=== PATIENT | male | born 1955 | race Caucasian/White ===

== ENCOUNTER 2020-01-04 00:26 | Day surgery (SDC) | payer OTHER, SELFPAY ==
[2020-01-03 12:54] VITALS: BMI 38.9
--- NOTE | 2020-01-04 08:23 | WPDANESEPPF ---
Anes - Initial Pre Proc Eval Procedure: Operation Date: 01/04/20 09:00 Proposed Procedures p Screening Colonoscopy - Micah Marinelli MD Date/Time: 01/04/20 08:23 Surgeon: Micah Marinelli MD Pre Op Diagnosis: Neoplasm Screening Patient Data Age: 64 Gender: M Height: 1.7 m Weight: 113 kg Allergies Allergy/AdvReac Type Severity Reaction Status Date / Time No Known Allergies Allergy Verified 01/03/20 12:53 Home Medications Medication Instructions Recorded Confirmed Type naproxen 500 mg tablet 500 mg PO BID #180 tablet 09/04/19 01/03/20 Rx aspirin 81 mg tablet,delayed 81 mg PO DAILY 12/04/19 01/03/20 History release atenolol 50 mg tablet 50 mg PO BID tablet 12/04/19 01/03/20 History lisinopril 20 1 tablet PO BID tablet 12/04/19 01/03/20 History mg-hydrochlorothiazide 12.5 mg tablet tramadol 50 mg tablet 50 mg PO TID PRN #60 tablet 12/21/19 01/03/20 Rx Patient hx anesthesia problems: none Family hx anesthesia problems: none [facility] Past Medical History Medical History (Updated 01/03/20 @ 14:15 by Pete Benavides DO) Hereditary essential tremor Hypertension Unspecified sleep apnea Surgical History Surgical History (Updated 01/03/20 @ 14:15 by Pete Benavides DO) History of total hip replacement History of total knee replacement Social History Social History Smoking status: Never smoker Alcohol intake: never Anes - Eval Final PreProcedure Day of Procedure 01/04/20 08:23 Patient weight: obese Heart: regular rate and rhythm Lungs: clear to auscultation and normal air movement Airway: Mallampati scale class III Neurological: alert and oriented Last oral intake: >/= 8 hours ASA classification: III Emergent: no Anesthetic plan: proceed Anesthesia type and monitoring: general GIVS and standard monitoring Informed Consent: The patient's anesthetic plan and its attendant risks and benefits were discussed with the patient/family/POA. Questions were solicited and answers provided to the satisfaction of the patient/family/POA.
[2020-01-04] MEDS: LACTATED RINGERS 1,000 ML 150 ML IV CONT (08:24)
[2020-01-04 08:31] VITALS: BP 151/103; PULSE 52; RESP 16; TEMP 36.4; O2SAT 100; BMI 41.1
--- NOTE | 2020-01-04 09:03 | WPDGICN ---
Assessment and Plan Additional Plan This is a 64-year-old white male patient seen in evaluation at the request of Dr. Abel Martinez. Patient presents for neoplasia screening. His current weight appetite bowel movements are normal. He denies abdominal pain. Denies any blood in his stools. He reports his bowel habits are regular and normal. Patient reports last colonoscopy 10 years ago was unremarkable. Five years ago he had partial colon resection for diverticulitis. Family history is significant both brother and father have had colon polyps. Past medical history is significant for hypertension. He has had previous hip and knee surgery in 2016. Current medications include a tunnel all, lisinopril, Naprosyn, tramadol, and aspirin. He has no known drug allergies. Physical exam reveals him to be alert. Vital signs stable. HEENT exam unremarkable. Lungs are clear to auscultation and percussion. Heart is without murmur or extra sounds. Abdominal exam bowel sounds are present soft nontender with no hepatosplenomegaly. Digital external rectal exam is normal. Impression 1. Family history of colon polyps. 2. History of partial colectomy because of diverticulitis. Plan is for screening colonoscopy. Consider this in 5 years because of family history. GI Consult Note Consult date/time: 01/04/20 09:03 HPI: Kash Gallegos is a 64 year old male [facility] Past Medical History Medical History (Updated 01/03/20 @ 14:15 by Pete Benavides DO) Hereditary essential tremor Hypertension Unspecified sleep apnea Surgical History Surgical History (Updated 01/03/20 @ 14:15 by Pete Benavides DO) History of total hip replacement History of total knee replacement Social History Social History Smoking status: Never smoker Alcohol intake: never Meds Home Medications and Allergies Home Medications Medication Instructions Recorded Confirmed Type naproxen 500 mg tablet 500 mg PO BID #180 tablet 09/04/19 01/03/20 Rx aspirin 81 mg tablet,delayed 81 mg PO DAILY 12/04/19 01/03/20 History release atenolol 50 mg tablet 50 mg PO BID tablet 12/04/19 01/03/20 History lisinopril 20 1 tablet PO BID tablet 12/04/19 01/03/20 History mg-hydrochlorothiazide 12.5 mg tablet tramadol 50 mg tablet 50 mg PO TID PRN #60 tablet 12/21/19 01/03/20 Rx Allergies Allergy/AdvReac Type Severity Reaction Status Date / Time No Known Allergies Allergy Verified 01/04/20 08:30 Vital Signs Vital Signs - 24 hr 01/04/20 08:31 Temperature 36.4 C L Pulse Rate 52 L Respiratory Rate 16 Blood Pressure 151/103 H Pulse Oximetry 100
[2020-01-04 09:27] VITALS: BP 110/63; PULSE 46; RESP 16; O2SAT 95
[2020-01-04 09:37] VITALS: BP 127/85; PULSE 51; RESP 16; O2SAT 95
[2020-01-04 09:47] VITALS: BP 112/56; PULSE 58; RESP 16; O2SAT 97
== END 2020-01-04 10:00 | disposition home or self-care (01) ==
PROVIDERS: PCP Family Medicine; Visit Provider Internal Medicine Gastroenterology
PROC: 0DJD8ZZ Inspection of Lower Intestinal Tract, Via Natural or Artificial Opening Endoscopic (ICD-10-PCS; CPT 45378; principal; 2020-01-04 09:00)
DX: Z12.11 Encounter for screening for malignant neoplasm of colon (principal); K57.30 Diverticulosis of large intestine without perforation or abscess without bleeding; K64.8 Other hemorrhoids; Z98.0 Intestinal bypass and anastomosis status; Z90.49 Acquired absence of other specified parts of digestive tract; Z87.19 Personal history of other diseases of the digestive system; Z83.71 Family history of colonic polyps; I10 Essential (primary) hypertension; G25.0 Essential tremor; G47.30 Sleep apnea, unspecified; Z79.82 Long term (current) use of aspirin; E66.01 Morbid (severe) obesity due to excess calories; Z68.41 Body mass index [BMI] 40.0-44.9, adult
CPT/HCPCS: 45378; J2704; J7120

== ENCOUNTER 2020-06-20 10:54 | Outpatient (CLI) | payer OTHER, SELFPAY ==
[2020-06-20 12:28] LABS: Alanine Aminotransferase 35 U/L (16-63); Albumin Level 4.1 g/dL (3.4-5.0); Alkaline Phosphatase 78 U/L (46-116); Anion Gap 5 mmol/L (8-16); Aspartate Amino Transferase 31 U/L (15-37); Blood Urea Nitrogen 16 mg/dL (7-18); Calcium 8.9 mg/dL (8.5-10.1); Carbon Dioxide 35 mmol/L (21-32); Chloride 98 mmol/L (98-108); Cholesterol 186 mg/dL (0-200); Estimated Glomerular Filt Rate > 60; Glucose 90 mg/dL (70-99); HDL Direct 42 mg/dL (40-60); LDL Cholesterol Calculated 117 mg/dL (<130); Osmolality Calculated 287 mOsm/kg (285-295); Sodium 138 mmol/L (136-145); Total Protein 6.9 g/dL (6.4-8.2); Triglycerides 136 mg/dL (0-150)
== END 2020-06-20 10:55 | disposition home or self-care (01) ==
LOC: CHSLAB 10:55
PROVIDERS: PCP Family Medicine; Visit Provider Family Medicine
DX: E11.9 Type 2 diabetes mellitus without complications (principal)
CPT/HCPCS: 36415; 80053; 80061

== ENCOUNTER 2020-08-21 12:59 | Outpatient (RCR) | payer OTHER, SELFPAY ==
--- NOTE | 2020-08-21 13:46 | PTOPEVAL ---
Thank you for referring Kash Gallegos to [facility].? The patient is scheduled to be seen for therapy? ____x/week for ___ weeks. Please review, sign, date and return this plan of care ANTONIA. I agree with and certify that the following plan of care is medically necessary. Referring Physician Date Admitting Provider: Attending Provider: PHYSICIAN NOT ON STAFF Referring Provider: *PT Outpatient Evaluation Start: 08/21/20 12:59 Freq: Status: Active Protocol: Document 08/21/20 13:00 GERMANIA (Rec: 08/21/20 13:46 GERMANIA [id number]) Therapy Assessment Status Assessment Status Assessment Status Evaluation Outpatient Past Medical History Neurological History Hx Neurological Disorders No Significant History Cardiovascular History Hx Hypertension Yes Respiratory History Hx Sleep Apnea Yes: CPAP Gastrointestinal History Hx Bowel Surgery Yes: colon resection Hx Diverticulitis Yes Hx Hernia Yes: Umbilical Hernia repair Genitourinary History Hx Genitourinary Disorders No Significant History Musculoskeletal History Hx Joint Replacement Yes: Right TKA 2015, Right SARAH 2016 Hematological History Hx Hematological Disorders No Significant History Endocrine History Hx Endocrine Disorders No Significant History HEENT History Hx HEENT Disorders No Significant History Integumentary History Hx Skin Disorders No Significant History Reproductive History Hx Reproductive Disorders No Significant History Psychosocial History Hx Psychiatric Disorders No Significant History Pain History History of Any Previous or Ongoing No Significant History Instance of Pain Anesthesia History Hx Anesthesia Reactions No Significant History Evaluation Information Problem Diagnosis s/p L TKA Onset 07/30/20 Additional Evaluation Detail LEFS = Subjective Information patient reports he had a TKA Query Text:As Reported By Patient/ of the L knee on 07/30/20. he Family reports prior to surgery he was experiencing a lot of pain . he reports his knee was very arthritic. he reports since surgery, he had some home health PT. he reports he is now coming to outpatient therapy to continue to get stronger, improve his mobility , and improved his function. he reports he wants to improve his walking speed. Prior Level of Function Comments
--- NOTE | 2020-09-12 16:42 | PTOPEVAL ---
Thank you for referring Kash Gallegos to [facility].? The patient is scheduled to be seen for therapy? ____x/week for ___ weeks. Please review, sign, date and return this plan of care ANTONIA. I agree with and certify that the following plan of care is medically necessary. Referring Physician Date Admitting Provider: Attending Provider: PHYSICIAN NOT ON STAFF Referring Provider: *PT Outpatient Evaluation Start: 08/21/20 12:59 Freq: Status: Active Protocol: Document 09/12/20 13:00 Cheng (Rec: 09/12/20 16:42 [facility] [email or web address]) Therapy Assessment Status Assessment Status Assessment Status Re-evaluation Outpatient Past Medical History Neurological History Hx Neurological Disorders No Significant History Cardiovascular History Hx Hypertension Yes Respiratory History Hx Sleep Apnea Yes: CPAP Gastrointestinal History Hx Bowel Surgery Yes: colon resection Hx Diverticulitis Yes Hx Hernia Yes: Umbilical Hernia repair Genitourinary History Hx Genitourinary Disorders No Significant History Musculoskeletal History Hx Joint Replacement Yes: Right TKA 2015, Right SARAH 2015 Hematological History Hx Hematological Disorders No Significant History Endocrine History Hx Endocrine Disorders No Significant History HEENT History Hx HEENT Disorders No Significant History Integumentary History Hx Skin Disorders No Significant History Reproductive History Hx Reproductive Disorders No Significant History Psychosocial History Hx Psychiatric Disorders No Significant History Pain History History of Any Previous or Ongoing No Significant History Instance of Pain Anesthesia History Hx Anesthesia Reactions No Significant History Evaluation Information Problem Diagnosis s/p L TKA Subjective Information patient reports he is feeling Query Text:As Reported By Patient/ good this date. he reports Family some tightness still in his L knee, but overall he is doing well. he reports he is compliant with his HEP at home . Pain Assessment Timing of Pain Assessment Timing of Pain Assessment Assessment Pain Scale Pain Scale Used Numeric (1 - 10) Self Report Pain Assessment Left Knee(s) Reported Pain Level 1 Pain Score Pain Score 1: Self Report Interventions Used Interventions Used By Clinicians Activity or ADL's,Compression Pump,Education,Exercise,Ice Lower Extremity Range of Motion Knee Range of Motion Left Knee Flexion Range of Motion - Active 100 Knee Flexion Range of Mot
== END 2020-10-10 18:00 | disposition home or self-care (01) ==
LOC: CHSPT 12:59
PROVIDERS: PCP Family Medicine
DX: Z96.652 Presence of left artificial knee joint (principal); M62.81 Muscle weakness (generalized)
CPT/HCPCS: 97016; 97110; 97161; 97530

== ENCOUNTER 2020-08-27 11:07 | Outpatient (CLI) | payer OTHER, SELFPAY ==
[2020-08-27 12:31] LABS: Anion Gap 9 mmol/L (8-16); Blood Urea Nitrogen 13 mg/dL (7-18); Carbon Dioxide 31 mmol/L (21-32); Chloride 101 mmol/L (98-108); Estimated Glomerular Filt Rate > 60; Glucose 94 mg/dL (70-99); Osmolality Calculated 292 mOsm/kg (285-295); Sodium 141 mmol/L (136-145)
== END 2020-08-27 11:08 | disposition home or self-care (01) ==
PROVIDERS: PCP Family Medicine; Visit Provider Family Medicine
DX: E87.1 Hypo-osmolality and hyponatremia (principal)
CPT/HCPCS: 36415; 80048

== ENCOUNTER 2024-11-08 16:17 | Outpatient (CLI) | payer OTHER, SELFPAY ==
--- NOTE | ~2024-11-08 | XR_ITS ---
[id number] 11/08/2024 16:41 Indication: Right knee pain Procedure: 2 views right knee Comparison: No prior studies for comparison. Findings: There is a right total knee arthroplasty, well seated. No evidence for loosening. No underl demetri fracture or traumatic malalignment. No significant joint effusion. No foreign bodies. Impression: 1: No acute bone or joint abnormality. Reviewed, dictated and finalized at location A. 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
== END 2024-11-08 16:18 | disposition home or self-care (01) ==
LOC: GOSHIMG 16:17
PROVIDERS: PCP Family Medicine; Visit Provider Family Medicine
DX: M25.561 Pain in right knee (principal)
CPT/HCPCS: 73560

== ENCOUNTER 2025-05-15 15:52 | Outpatient (CLI) | payer OTHER, SELFPAY ==
--- NOTE | ~2025-05-15 | XR_ITS ---
XR cervical spine 4-5V 05/15/2025 16:11 Indication: Neck pain Procedure: 5 views cervical spine including flexion/extension views Comparison: No prior studies for comparison. Findings: There is disc narrowing at C5-6 and C6-7. Vertebral body heights are maintained. No prevert ebral soft tissue swelling. Odontoid process is normal. Lateral masses normally aligned. No preverteb ral soft tissue swelling. No alteration of alignment with flexion/extension. There is multilevel unci shani and facet hypertrophy. Impression: 1: Moderate cervical spondylosis. Reviewed, dictated and finalized at location A. Impression: 1: Moderate cervical spondylosis.
--- NOTE | ~2025-05-15 | XR_ITS ---
EXAM/ PROCEDURE: XR clavicle RT, XR shoulder RT min 2V - 05/15/2025 15:55 CDT HISTORY: 69 years old Male with M25.519 - Pain in unspecified shoulder COMPARISON: None available FINDINGS/ IMPRESSION: There are no fractures or dislocations.Joint space narrowing, subchondral sclerosis, subchondral cyst formation and osteophyte formation, compatible with moderate osteoarthritis. Reviewed, dictated and finalized at location A.
== END 2025-05-15 15:53 | disposition home or self-care (01) ==
LOC: GOSHIMG 15:52
PROVIDERS: PCP Family Medicine; Visit Provider Family Medicine
DX: M25.511 Pain in right shoulder (principal); M47.22 Other spondylosis with radiculopathy, cervical region
CPT/HCPCS: 72050; 73000; 73030

== ENCOUNTER 2025-08-20 02:04 | Day surgery (SDC) | payer OTHER, SELFPAY ==
[2025-08-09 13:03] VITALS: BMI 40.4
--- OUTSIDE RECORDS SUMMARY | 2025-08-20 02:07 | XMS_ITS | Clinical Summary ---
Author Organization [facility] Address [address] [place] [address] Phone Care Team Providers Care Lottery Office Manager Name Role Phone Abel Martinez MD Primary Care Provider [phone] Allergies No known active allergies Medications multivitamin,tx -iron-ca-min (THERA-M) 27-0.4 mg Tablet Take 1 Tablet by mouth daily. 40 Tablet 1 6 Active traMADoL (ULTRAM) 50 mg tabletIndicatio ns:Status post total knee replacement using cement, left Take 2 Tablets (100 mg) by mouth every 6 hours as needed for MILD pain 40 Tablet 1 08/03/2020 2:51 PM CDT 0 Active lisinopriL (PRINIVIL) 40 mg tablet Take 0.5 Tablets (20 mg) by mouth 2 times daily. 30 Tablet 08/03/2020 2:51 PM CDT 0 Active Additional Information Patient taking differently: 40 mgOralDAILY, Reported on 05/22/2025 naproxen (NAPROSYN) 500 mg tablet 2 Active potassium chloride (KLOR-CON) 10 mEq Extended Release tablet Take 1 Tablet by mouth daily. 4 Active aspirin (ECOTRIN EC) 81 mg Tablet, Delayed Release (E.C.) Take 1 Tablet (81 mg) by mouth daily. 90 Tablet 3 4 Active hydroCHLOROthia zide 25 mg tablet TAKE 1 TABLET BY MOUTH EVERY DAY 90 Tablet 3 4 Active furosemide (LASIX) 40 mg tablet TAKE 1 TABLET BY MOUTH EVERY DAY 90 Tablet 3 5 Active rosuvastatin (CRESTOR) 10 mg tablet TAKE 1 TABLET (10 MG) BY MOUTH DAILY. 90 Tablet 1 5 Active atenoloL (TENORMIN) 25 mg tablet Take 1 Tablet (25 mg) by mouth daily. 90 Tablet 1 5 Active tirzepatide, weight loss, (Zepbound) 2.5 mg/0.5 mL Pen Injector Inject 2.5 mg by subcutaneous injection every 7 days. Active amoxicillin (AMOXIL) 500 mg capsule dental 5 Active amLODIPine (NORVASC) 10 mg tablet TAKE 1 TABLET (10 MG) BY MOUTH DAILY. 90 Tablet 5 Active Active Problems Patient Care Coordination No te Formatting of this note migh t be different from the original. 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 Replacer Terrence Mendiola [facility] Heart and Vascular @ Problem Noted Date Diagnosed Date Mixed hyperlipidemia 03/07/2024 Chronic diastolic dysfunction 03/05/2022 NSVT (nonsustained ventricular tachycardia) 06/2020 Quadriceps weakness 10/20/2019 Status post total hip replacement, right 017 Primary osteoarthritis of right hip 06/08/2016 Status post total knee replacement using cement, left 05/11/2016 Essential hypertension 04/15/2016 JOSE FRANCISCO (obstructive sleep apnea) 04/15/2016 Morbid obesity with BMI of 40.0-44.9, adult 01/2016 Primary osteoarthritis of left knee 01/27/2016 Primary osteoarthritis of right knee 01/27/2016 Carpal tunnel syndrome 02/14/2015 Hypokalemia Acute blood loss anemia Supraventricular tachycardia Encounters Date Type Department Care Team Description 08/15/2025 External Device Data STL ABSTRACTION Provider, Abstract 08/14/2025 External Device Data STL ABSTRACTION Provider, Abstract 08/07/2025 External Device Data STL ABSTRACTION Provider, Abstract 07/31/2025 External Device Data STL ABSTRACTION Provider, Abstract 07/10/2025 External Device Data STL ABSTRACTION Provider, Abstract 06/26/2025 External Device Data STL ABSTRACTION Provider, Abstract 06/26/2025 External Device Data STL ABSTRACTION Provider, Abstract 06/20/2025 External Device Data STL ABSTRACTION Provider, Abstract 06/12/2025 External Device Data STL ABSTRACTION Provider, Abstract 05/31/2025 Refill [facility] EP AT [address] [place] [address] Theresa Larson PA 05/30/2025 External Device Data STL ABSTRACTION Provider, Abstract 05/22/2025 8:45 AM CDT Office Visit [facility] Heart and Vascular At [address] [place] [address] Terrence Mendiola MD Chronic diastolic dysfunction (Primary Dx); Supraventricular tachycardia; Essential hypertension; NSVT (nonsustained ventricular tachycardia) (CMS/[facility]); Morbid obesity with BMI of 40.0-44.9, adult (CMS/HCC); Mixed hyperlipidemia from Last 3 Months Immunizations Immunization Administration Dates Next Due Influenza Seasonal Unspecified Formulation IM ,08/03/2016 Family History Medical History Relation Name Comments Leukemia Father Healthy Mother Relation Name Status Comments Father Mother Alive Social History Tobacco Use Types Packs/Day Years Used Date Smoking Tobacco: Never Smokeless Tobacco: Never Tobacco Cessation:Counseling Given: Not Answered Alcohol Use Standard Drinks/Week Comments Yes 1 (1 standard drink = 0.6 oz pur e alcohol) week Sex and Gender Information Value Date Recorded Sex Assigned at Not on file Legal Sex Male 1:03 PM CDT Gender Identity Not on file Sexual Orientation Not on file Last Filed Vital Signs Vital Sign Reading Time Taken Comments Blood Pressure 142/70 05/22/2025 8:40 AM CDT Pulse 56 05/22/2025 8:40 AM CDT Temperature 36.5 C (97.7 F) 08/26/2020 2:54 PM 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 Respiratory Rate 18 08/18/2021 10:34 AM CDT Oxygen Saturation 99% 05/22/2025 8:40 AM CDT Inhaled Oxygen Concentration - - Weight 124.3 kg (274 lb) 05/22/2025 8:40 AM CDT Height 170.2 cm (5' 7) 05/22/2025 8:40 AM CDT Body Mass Index 42.91 05/22/2025 8:40 AM CDT Plan of Treatment Upcoming Encounters Date Type Department Care Team (Late st Contact Info) Description 11/22/2025 2:30 PM 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 Office Visit [facility] Heart and Vascular At [facility] [address] [place] [address] Terrence Mendiola MD [address] [place] [address] 03/21/2026 2:30 PM CDT Office Visit [facility] Pulmonology [facility] [address] [place] [address] Rose Marie Albright, SAUL [address] [place] [address] Health Maintenance Due Date Last Done Comments Pre-Diabetes and Diabetes Screening 1955 DTAP/TDAP/TD VACCINES (1 - Tdap) 1974 PNEUMOCOCCAL VACCINE 50+ YEA RS (1 of 2 - PCV) 1974 COLORECTAL SCREENING 2000 Colorectal Cancer Screening 2000 FIT-DNA Q 3 years 2000 FIT/FOBT Q 1 year 2000 Flex Sig/CT Colonography Q 5 years 2000 RSV VACCINE (60+ or ) (1 - Risk 50-74 years 1-dose series) 2005 ZOSTER VACCINE (1 of 2) 2005 INFLUENZA VACCINE (#1) 2025 3, 05/25/2020, 10/30/2019, Additional history exists Medical Devices Implanted Type Area Highway Maintenance Worker Device Identifier Shelf Expiration Date Model / Serial / Lot Cement [place] Hv 40g [id number] - [id number] Implanted:Qty : 1 on 04/14/2016 by Jae Navarro MD at [facility] Cement Right: Knee [employer] 05/24/2017 [id number] / / [id number] Cement [place] Hv 40g [id number] - [id number] Implanted:Qty : 1 on 04/14/2016 by Jae Navarro MD at [facility] Cement Right: Knee [employer] [id number] 08/24/2017 [id number] / / [id number] Bone Cement Implanted:Qty : 2 on 07/30/2020 by Jae Navarro MD at [facility] Cement Left: Knee [employer] [id number] 10/24/2024 [id number] / / [id number] Liner Arcomxl Hi Wall Szf 36mm [id number] - [id number] Implanted:Qty : 1 on 10/13/2016 by Jae Navarro MD at [facility] Hip Right: Acetabulum [employer] [id number] 08/18/2021 [id number] / / [id number] Stem Fem Tprlc R/D Sz11 [id number] - [id number] Implanted:Qty : 1 on 10/13/2016 by Jae Navarro MD at [facility] Hip Right: Trochanter [employer] 07/15/2026 [id number] / / [id number] Head Fem Mod Cer Biolox 36mm 121 - [id number] Implanted:Qty : 1 on 10/13/2016 by Jae Navarro MD at [facility] Hip Right: Hip [employer] [id number] 03/05/2026 [id number] / / [id number] Hip H-3a Biom Total Implanted:Qty : 1 on 10/13/2016 by Jae Navarro MD at [facility] Hip Right: Acetabulum [employer] H-3A BIOM / / Description:REQUISITION,6758 428. Comp Tib Cocr Finned 79mm [id number] - [id number] Implanted:Qty : 1 on 04/14/2016 by Jae Navarro MD at [facility] Knee Right: Knee [employer] [id number] 10/11/2025 [id number] / / [id number] Patella 3peg Series A [id number] - [id number] Implanted:Qty : 1 on 04/14/2016 by Jae Navarro MD at [facility] Knee Right: Knee [employer] [id number] 01/09/2020 [id number] / / [id number] Description:All Biomet recon knee components are processed on requisition,2573633. Comp Fem Vngrd Cr Intrlk Rt 72.5mm [id number] - [id number] Implanted:Qty : 1 on 04/14/2016 by Jae Navarro MD at [facility] Knee Right: Knee [employer] [id number] 10/23/2025 [id number] / / [id number] Brg Tib Vngrd Ant Stblzd 925400 - [id number] Implanted:Qty : 1 on 04/14/2016 by Jae Navarro MD at [facility] Knee Right: Knee [employer] [id number] 02/17/2021 [id number] / / [id number] Comp Fem Vanguard Cr Interlock Lt 72.5mm [id number] - [id number] Implanted:Qty : 1 on 07/30/2020 by Jae Navarro MD at [facility] Knee Left: Knee [employer] [id number] 05/29/2030 [id number] / / [id number] Bearing Tib Vanguard Ant Stblzd [id number] - [id number] Implanted:Qty : 1 on 07/30/2020 by Jae Navarro MD at [facility] Knee Left: Knee [employer] [id number] 05/26/2024 [id number] / / [id number] Comp Tib Cocr Finned 79mm [id number] - [id number] Implanted:Qty : 1 on 07/30/2020 by Jae Navarro MD at [facility] Knee Left: Knee [employer] 05/28/2030 [id number] / / [id number] Patella 3peg Series A [id number] - [id number] Implanted:Qty : 1 on 07/30/2020 by Jae Navarro MD at [facility] Knee Left: Patella [employer] 05/16/2025 [id number] / / [id number] G7 Finned Acetabular Shell Implanted:Qty : 1 on 10/13/2016 by Jae Navarro MD at [facility] Other Right: Acetabulum [employer] 03/17/2026 [id number] / / [id number] Insurance RX [facility] [employer] (INTERNAL) [facility] [place] [employer] Advance Directives For more information, please contact: [phone] Documents on File Type Date Recorded Patient Cardiac Technologist Expl anation Advance Directive POA 10/20/2016 10:06 AM Advance Directive POA Advance Directive Living Will 10/20/2016 10:06 AM Advance Directive Living Will * Full Code (Latest Code Status on File) Date Activated Date Inactivated Comments 07/30/2020 10:51 AM 08/03/2020 6:40 PM * Full Code Date Activated Date Inactivated Comments 07/30/2020 7:06 AM 07/30/2020 10:51 AM * Full Code Date Activated Date Inactivated Comments 10/13/2016 6:35 PM 10/15/2016 7:37 PM * Full Code Date Activated Date Inactivated Comments 10/13/2016 1:46 PM 10/13/2016 6:35 PM * Full Code Date Activated Date Inactivated Comments 10/13/2016 12:28 PM 10/13/2016 1:46 PM Care Teams Lottery Office Manager Relationship Specialty Start Date End Date Abel Martinez MD PCP - General Family Practice 10/02/16
[2025-08-20 11:49] VITALS: BP 147/77; PULSE 62; RESP 18; TEMP 36.1; O2SAT 100
[2025-08-20] MEDS: LACTATED RINGERS 1,000 ML 150 ML IV CONT (11:57)
--- NOTE | 2025-08-20 12:23 | PM.IMHP ---
H&P: HPI History of Present Illness Date/Time: 08/20/25 12:23 Chief Complaint: Family history of colon polyps Narrative: This patient has family history of colorectal polyps. His brother and father had colon polyps. His last colonoscopy was about 5 years ago. Review of Systems Review of Systems: All systems reviewed & are unremarkable except as noted in HPI and below PMFSH Past Medical History Medical History AD-inhibitor cough Incisional hernia, incarcerated (~05/25/18) Obesity Ventricular tachycardia Atrial tachycardia Hypertension Hereditary essential tremor Unspecified sleep apnea Surgical History Surgical History History of tonsillectomy History of left knee replacement (07/30/20) History of total hip replacement History of total knee replacement Family History Family History Father Family history of malignant neoplasm Other Diabetes mellitus Family history of allergic disorder Hypertension Social History Social History Smoking status: Never smoker Second hand tobacco smoke exposure: No Alcohol intake: never Substance use: never Substance use type: does not use Lack of Transportation: No Lack of Food: Never True Current Housing: I Have Housing Concerned About Future Housing: No Difficulty Paying Gas/Electric Bills: No Difficulty Paying for Meds: No Currently Unemployed: No Education: High School Diploma/GED Difficulty w/ Childcare or Family Care: No Living arrangements: with family Occupation/Education: occupation Gender identity (if verbalized by the patient): Male Spiritual care concerns: No Agree to blood products: Yes Meds Home Medications and Allergies Home Medications ?Medication ?Instructions ?Recorded ?Confirmed ?Type aspirin 81 mg tablet,delayed 81 mg PO DAILY 12/04/19 08/09/25 History release (Adult Low Dose Aspirin) cyclobenzaprine 10 mg tablet See Rx Instructions .Route 07/24/21 08/09/25 Rx .COMPLEX #90 tabs amlodipine 10 mg tablet 10 mg PO DAILY #90 tabs 08/17/22 08/20/25 Rx atenolol 25 mg tablet 25 mg PO DAILY 04/19/24 08/20/25 History furosemide 40 mg tablet 60 mg PO DAILY 04/19/24 08/09/25 History hydrochlorothiazide 25 mg tablet 25 mg PO DAILY 04/19/24 08/09/25 History potassium chloride 10 mEq 20 meq (2 x 10 mEq) PO DAILY #180 04/19/24 08/09/25 Rx tablet,extended release tabs rosuvastatin 10 mg tablet 10 mg PO DAILY 04/19/24 08/09/25 History naproxen 500 mg tablet 500 mg PO BID #180 tabs 11/27/24 08/09/25 Rx tramadol 50 mg tablet 50 mg PO TID #90 tabs 06/11/25 08/09/25 Rx lisinopril 40 mg tablet See Rx Instructions .Route 06/18/25 08/09/25 Rx .COMPLEX #90 tabs tirzepatide (weight loss) 5 mg/0.5 5 mg (0.5 mL) subcut WEEKLY #6 mL 07/30/25 08/20/25 Rx mL subcutaneous pen injector ([employer]) Allergies Allergy/AdvReac Type Severity Reaction Status Date / Time No Known Allergies Allergy Verified 08/20/25 11:47 Vital Signs Vital Signs - 24 hr 08/20/25 11:49 Temperature 97 F L Pulse Rate 62 Respiratory Rate 18 Blood Pressure 147/77 H Pulse Oximetry 100 Oxygen Delivery Room Air Exam Const: General: cooperative and healthy appearing Resp: Effort & Inspection: normal respiratory effort and able to speak in complete sentences Auscultation: clear to auscultation bilaterally Cardio: Rate: regular rate Rhythm: regular rhythm GI: Inspection: normal to inspection GI Palp: No No hepatosplenomegaly present Auscultation: normal bowel sounds Rectal Exam: deferred Skin: General skin exam: normal color Psych: Appearance: grossly normal Mental Status: mental status grossly normal Assessment and Plan Assessment and plan (1) Family history of colonic polyps: Code(s): Z83.71 - Family history of colonic polyps Status: Acute Assessment and Plan: The patient is deemed a good candidate for the procedure. Consent signed. Will proceed.
--- NOTE | 2025-08-20 12:33 | WPDANESEPPF ---
Anes - Initial Pre Proc Eval Procedure: Operation Date: 08/20/25 13:00 Proposed Procedures p Screening Colonoscopy - Galo Lopez MD Date/Time: 08/20/25 12:33 Surgeon: Galo Lopez MD Pre Op Diagnosis: Personal history of colon polyps, unspecified Patient Data Age: 70 Gender: M Height: 1.7 m Weight: 113.8 kg Last Vital Signs Temp 36.1 C L 08/20/25 11:49 Pulse 62 08/20/25 11:49 Resp 18 08/20/25 11:49 BP 147/77 H 08/20/25 11:49 Pulse Ox 100 08/20/25 11:49 O2 Del Method Room Air 08/20/25 11:49 Allergies Allergy/AdvReac Type Severity Reaction Status Date / Time No Known Allergies Allergy Verified 08/20/25 11:47 Home Medications ?Medication ?Instructions ?Recorded ?Confirmed ?Type aspirin 81 mg tablet,delayed 81 mg PO DAILY 12/04/19 08/09/25 History release (Adult Low Dose Aspirin) cyclobenzaprine 10 mg tablet See Rx Instructions .Route 07/24/21 08/09/25 Rx .COMPLEX #90 tabs amlodipine 10 mg tablet 10 mg PO DAILY #90 tabs 08/17/22 08/20/25 Rx atenolol 25 mg tablet 25 mg PO DAILY 04/19/24 08/20/25 History furosemide 40 mg tablet 60 mg PO DAILY 04/19/24 08/09/25 History hydrochlorothiazide 25 mg tablet 25 mg PO DAILY 04/19/24 08/09/25 History potassium chloride 10 mEq 20 meq (2 x 10 mEq) PO DAILY #180 04/19/24 08/09/25 Rx tablet,extended release tabs rosuvastatin 10 mg tablet 10 mg PO DAILY 04/19/24 08/09/25 History naproxen 500 mg tablet 500 mg PO BID #180 tabs 11/27/24 08/09/25 Rx tramadol 50 mg tablet 50 mg PO TID #90 tabs 06/11/25 08/09/25 Rx lisinopril 40 mg tablet See Rx Instructions .Route 06/18/25 08/09/25 Rx .COMPLEX #90 tabs tirzepatide (weight loss) 5 mg/0.5 5 mg (0.5 mL) subcut WEEKLY #6 mL 07/30/25 08/20/25 Rx mL subcutaneous pen injector (Zepbound) Patient hx anesthesia problems: none Family hx anesthesia problems: none Results Review: All pre-operative results and documents have been reviewed as part of the pre-operative evaluation. [facility] Past Medical History Medical History AD-inhibitor cough Incisional hernia, incarcerated (~05/25/18) Obesity Ventricular tachycardia Atrial tachycardia Hypertension Hereditary essential tremor Unspecified sleep apnea Surgical History Surgical History History of tonsillectomy History of left knee replacement (07/30/20) History of total hip replacement History of total knee replacement Family History Family History Father Family history of malignant neoplasm Other Diabetes mellitus Family history of allergic disorder Hypertension Social History Social History Smoking status: Never smoker Second hand tobacco smoke exposure: No Alcohol intake: never Substance use: never Substance use type: does not use Lack of Transportation: No Lack of Food: Never True Current Housing: I Have Housing Concerned About Future Housing: No Difficulty Paying Gas/Electric Bills: No Difficulty Paying for Meds: No Currently Unemployed: No Education: High School Diploma/GED Difficulty w/ Childcare or Family Care: No Living arrangements: with family Occupation/Education: occupation Gender identity (if verbalized by the patient): Male Spiritual care concerns: No Agree to blood products: Yes Anes - Eval Final PreProcedure Day of Procedure 08/20/25 12:33 Patient weight: obese Heart: regular rate and rhythm Lungs: decreased breath sounds Airway: Mallampati scale class II Neurological: alert and oriented Last oral intake: >/= 8 hours ASA classification: III Emergent: no Anesthetic plan: proceed Anesthesia type and monitoring: general GIVS and standard monitoring Results Review: All pre-operative results and documents have been reviewed as part of the pre-operative evaluation. Informed Consent: The patient's anesthetic plan and its attendant risks and benefits were discussed with the patient/family/POA. Questions were solicited and answers provided to the satisfaction of the patient/family/POA.
--- NOTE | 2025-08-20 12:52 | P.HP_ITS ---
<Statement entered by Galo Lopez MD - 08/20/25 15:00> See H&P in chart H&P: HPI History of Present Illness Date/Time: 08/20/25 12:52 Chief Complaint: H & P in chart [facility] Past Medical History Medical History AD-inhibitor cough Incisional hernia, incarcerated (~05/25/18) Obesity Ventricular tachycardia Atrial tachycardia Hypertension Hereditary essential tremor Unspecified sleep apnea Surgical History Surgical History History of tonsillectomy History of left knee replacement (07/30/20) History of total hip replacement History of total knee replacement Family History Family History Father Family history of malignant neoplasm Other Diabetes mellitus Family history of allergic disorder Hypertension Social History Social History Smoking status: Never smoker Second hand tobacco smoke exposure: No Alcohol intake: never Substance use: never Substance use type: does not use Lack of Transportation: No Lack of Food: Never True Current Housing: I Have Housing Concerned About Future Housing: No Difficulty Paying Gas/Electric Bills: No Difficulty Paying for Meds: No Currently Unemployed: No Education: High School Diploma/GED Difficulty w/ Childcare or Family Care: No Living arrangements: with family Occupation/Education: occupation Gender identity (if verbalized by the patient): Male Spiritual care concerns: No Agree to blood products: Yes Meds Home Medications and Allergies Home Medications ?Medication ?Instructions ?Recorded ?Confirmed ?Type aspirin 81 mg tablet,delayed 81 mg PO DAILY 12/04/19 1 History release (Adult Low Dose Aspirin) cyclobenzaprine 10 mg tablet See Rx Instructions .Joyce jensen 07/24/21 08/09/25 Rx .COMPLEX #90 tabs amlodipine 10 mg tablet 10 mg PO DAILY #90 tabs 07/2608/20/25 Rx atenolol 25 mg tablet 25 mg PO DAILY 04/19/2407/26 History furosemide 40 mg tablet 60 mg PO DAILY 04/19/2407/25 History hydrochlorothiazide 25 mg tablet 25 mg PO DAILY 08/09/25 History potassium chloride 10 mEq 20 meq (2 x 10 mEq) PO DAILY #180 04/19/24 08/09/25 Rx tablet,extended release tabs rosuvastatin 10 mg tablet 10 mg PO DAILY 04/19/2407/25 History naproxen 500 mg tablet 500 mg PO BID #180 tabs 01/1608/09/25 Rx tramadol 50 mg tablet 50 mg PO TID #90 tabs 08/09/25 Rx lisinopril 40 mg tablet See Rx Instructions .Route 0 06/18/25 08/09/25 Rx .COMPLEX #90 tabs tirzepatide (weight loss) 5 mg/0.5 5 mg (0.5 mL) subcu t WEEKLY #6 mL 07/30/25 08/20/25 Rx mL subcutaneous pen injector (Zepbound) Allergies Allergy/AdvReac Type Severity Reaction Status Date / Time No Known Allergies Allergy Verified 08/20/25 11:47 Vital Signs Vital Signs - 24 hr 08/20/25 11:49 Temperature 97 F L Pulse Rate 62 Respiratory Rate 18 Blood Pressure 147/77 H Pulse Oximetry 100 Oxygen Delivery Room Air
--- NOTE | 2025-08-20 13:18 | S_PTH ---
PATIENT: Kash Gallegos LOC: [facility] U#:[id number] AGE/SX: 70/M ROOM: RE08/20/[address]: Galo Lopez MD : 1955 BED: DIS: 08/20/2025 SPEC #: [id number] RECD: 08/20/25 13:24 STATUS: ZONIA REQ #: [id number] WILLIAM: 08/20/25 13:[address]: Galo Lopez DEPT: [facility] Surgical RECD BY: Mira Case ENTERED: 08/20/25 13:24 SP TYPE: Surgical OTHR DR: Abel Martinez MD Tissues: A - Colon Polypectomy Procedures: Hematoxylin and Eosin Stain Gross and Microscopic Level 4
[2025-08-20 13:24] VITALS: BP 108/65; PULSE 57; RESP 18; O2SAT 98
[2025-08-20 13:34] VITALS: BP 118/59; PULSE 57; RESP 18; O2SAT 98
[2025-08-20 13:44] VITALS: BP 127/77; PULSE 57; RESP 16; O2SAT 98
== END 2025-08-20 14:01 | disposition home or self-care (01) ==
PROVIDERS: PCP Family Medicine; Referring Provider Family Medicine; Visit Provider Internal Medicine Gastroenterology
PROC: 0DJD8ZZ Inspection of Lower Intestinal Tract, Via Natural or Artificial Opening Endoscopic (ICD-10-PCS; CPT 45378; principal; 2025-08-20 13:00)
DX: Z12.11 Encounter for screening for malignant neoplasm of colon (principal); K51.40 Inflammatory polyps of colon without complications; K57.30 Diverticulosis of large intestine without perforation or abscess without bleeding; I10 Essential (primary) hypertension; I47.19 Other supraventricular tachycardia; G25.0 Essential tremor; E66.9 Obesity, unspecified; Z68.39 Body mass index [BMI] 39.0-39.9, adult; Z79.82 Long term (current) use of aspirin; Z79.1 Long term (current) use of non-steroidal anti-inflammatories (NSAID); Z79.891 Long term (current) use of opiate analgesic; Z79.85 Long-term (current) use of injectable non-insulin antidiabetic drugs; Z98.890 Other specified postprocedural states; Z87.19 Personal history of other diseases of the digestive system; Z83.719 Family history of colon polyps, unspecified; Z80.9 Family history of malignant neoplasm, unspecified
CPT/HCPCS: 45385; 88305; J2704; J7120